=== PATIENT | male | born 1945 ===

== ENCOUNTER → 2021-07-14 | Emergency (ER) | payer OTHER, BC ==
[~2021-07-14] VITALS: Ht 188 cm; Wt 63.5 kg
[~2021-07-14] MED LIST: ALLOPURINOL100 MG; ELIQUIS5 MG; PROTONIX40 MG; SIMVASTATIN5 MG; ZYRTEC10 M3
== END | disposition left against medical advice (07) ==
LOC: ER 21:11
DX: M79.661 Pain in right lower leg (principal)